=== PATIENT | female | born 1970 | race Caucasian/White ===

== ENCOUNTER → 2017-04-08 | Outpatient (CLI) | payer OTHER ==
--- NOTE | 2017-04-08 11:45 | RADIOLOGY REPORT (SQ) ---
EXAM DESCRIPTION: CT ABD/PELVIS WITH IV ONLY COMPLETED DATE/TIME: 04/08/2017 11:17 am REASON FOR STUDY: CALCULUS OF KIDNEY N20.0 CALCULUS OF KIDNEY R10.9 UNSPECIFIED ABDOMINAL PAIN COMPARISON: None. TECHNIQUE: CT scan of the abdomen and pelvis performed using helical scanning technique with dynamic intravenous contrast injection. No oral contrast. Images reviewed with lung, soft tissue, and bone windows. Reconstructed coronal and sagittal MPR images reviewed. Delayed images for evaluation of the urinary system also acquired. All images stored on PACS. All CT scanners at this facility use dose modulation, iterative reconstruction, and/or weight based d osing when appropriate to reduce radiation dose to as low as reasonably achievable (ALARA). [facility]: Dose Right [facility]: CareDose [facility]: Dose Right [facility]: Teradose 4D [facility]: PixSense CONTRAST TYPE AND DOSE: contrast/concentration: Isovue 370.00 mg/ml; Total Contrast Delivered: 79.0 ml; Total Saline Delivered: 68.0 ml RENAL FUNCTION: Creatinine 0.5 RADIATION DOSE: Up-to-date CT equipment and radiation dose reduction techniques were employed. CTDIv ol: 6.1 - 7.2 mGy. DLP: 667 mGy-cm.. LIMITATIONS: None. FINDINGS: LOWER CHEST: No significant findings. No nodules or infiltrates. LIVER: There is a 10 mm low-density lesion right lobe of the liver on image 13. The shows peripheral enhancement. SPLEEN: Normal size. No focal lesions. PANCREAS: No masses. No significant calcifications. No adjacent inflammation or peripancreatic fluid collections. Pancreatic duct not dilated. GALLBLADDER: No identified stones by CT criteria. No inflammatory changes to suggest cholecystitis. ADRENAL GLANDS: No significant masses or asymmetry. RIGHT KIDNEY AND URETER: No solid masses. No significant calcifications. No hydronephrosis or hyd roureter. LEFT KIDNEY AND URETER: No solid masses. No significant calcifications. No hydronephrosis or hydr oureter. AORTA AND VESSELS: No aneurysm. No dissection. Renal arteries, SMA, celiac without stenosis. RETROPERITONEUM: No retroperitoneal adenopathy, hemorrhage or masses. BOWEL AND PERITONEAL CAVITY: No masses or inflammatory changes. No free fluid or peritoneal masses. APPENDIX: Not identified. PELVIS: The urinary bladder is normal. The uterus is absent. There is no adnexal mass or fluid aamir ection. ABDOMINAL WALL: No masses. No hernias. BONES: No significant or acute findings. OTHER: No other significant finding. IMPRESSION: 1. No urinary pathology is seen. 2. There is a small low-density peripherally enhancing lesion in the right lobe of the liver suggest ines of a hemangioma. TECHNICAL DOCUMENTATION: JOB ID: [id number] Quality ID # [id number]: Final reports with documentation of one or more dose reduction techniques (e.g., Au tomated exposure control, adjustment of the mA and/or kV according to patient size, use of iterative reconstruction technique) 2010 [employer]- All Rights Reserved
== END ==
LOC: RAD 10:16
PROVIDERS: ATTEND Nurse Practitioner Family
DX: N20.0 Calculus of kidney (principal); R10.9 Unspecified abdominal pain
CPT/HCPCS: 74177; 82565

== ENCOUNTER 2018-02-19 12:31 | Observation (INO) | payer BC, OTHER ==
[~2018-02-19 12:31] MED LIST: GLYCOPYRROLATE INJ 0.4 MG/2 ML VIAL ONE; NEOSTIGMINE METHYLSULFATE 10 MG/10 ML VIAL ONE; ROCURONIUM BROMIDE INJ 50 MG/5 ML VIAL IV ONE; SUCCINYLCHOLINE CHLORIDE INJ 200 MG/10 ML VIAL ONE
--- NOTE | 2018-02-19 13:12 | ER Document Report ---
ED Medical Screen (RME) - General Chief Complaint: Abdominal Pain Stated Complaint: LOWER ABDOMINAL PAIN Time Seen by Provider: 02/19/18 13:03 Notes: RAPID MEDICAL EVALUATION DISCLOSURE I have seen this patient as part of a Rapid Medical Evaluation and, if applicable, placed any initially appropriate orders. The patient will be seen and fully evaluated, including a full history and physical exam, by a provider ( in Main ED or Fast Track) when a room becomes available. 47-year-old female here with complaints of right lower quadrant abdominal pain ( worse with moving her right leg/hip) nausea vomiting that started yesterday. She has not had any dysuria hematuria frequency hesitancy and states he does not feel the same as her previous kidney stone pains. She has not had any diarrhea fevers chills. She is concerned she might have appendicitis. Her pain did worsen on the car ride here whenever her drove over bumps in the road. EXAM Minimally tachycardic Exquisite right lower quadrant TTP Mild suprapubic and right upper quadrant TTP TRAVEL OUTSIDE OF THE [place] IN LAST 30 DAYS: No - Related Data Allergies/Adverse Reactions: Penicillins Allergy (Severe, Verified 02/19/18 12:32) Hives Sulfa (Sulfonamide Antibiotics) Allergy (Intermediate, Verified 02/19/18 12:32) Nausea Past Medical History - Past Medical History Cardiac Medical History: Denies: Hx Coronary Artery Disease, Hx Heart Attack, Hx Hypertension Pulmonary Medical History: Reports: Hx Pneumonia Denies: Hx Asthma, Hx Bronchitis, Hx COPD Neurological Medical History: Denies: Hx Cerebrovascular Accident, Hx Seizures Musculoskeltal Medical History: Denies Hx Arthritis Past Surgical History: Denies: Hx Pacemaker - Immunizations Hx Diphtheria, Pertussis, Tetanus Vaccination: Yes Physical Exam - Vital signs Vitals: Temp Pulse Resp BP Pulse Ox 98.5 F 108 H 16 122/71 97 02/19/18 12:36 02/19/18 12:36 02/19/18 12:36 02/19/18 12:36 02/19/18 12:36 Course - Vital Signs Vital signs: Temp Pulse Resp BP Pulse Ox 98.5 F 108 H 16 122/71 97 02/19/18 12:36 02/19/18 12:36 02/19/18 12:36 02/19/18 12:36 02/19/18 12:36
[2018-02-19] MEDS ORDERED: ONDANSETRON HCL INJ/PF 4 MG/2 ML SDV IV ONE (13:13)
[2018-02-19] MEDS ORDERED: FENTANYL CITRATE INJ/PF 100 MCG/2 ML AMPUL IV ONE (13:13)
[2018-02-19 14:01] LABS: ABSOLUTE LYMPHOCYTES (AUTO) 1.8 10^3/uL (0.5-4.7); ABSOLUTE MONOCYTES (AUTO) 0.7 10^3/uL (0.1-1.4); ABSOLUTE NEUT (AUTO) 12.9 10^3/uL (1.7-8.2); BASOPHILS % (AUTO) 0.3 % (0-2); EOSINOPHILS % (AUTO) 0.2 % (0-6); HEMATOCRIT 39.7 % (36.0-47.0); HEMOGLOBIN 13.5 g/dL (12.0-15.5); LYMPHOCYTES % (AUTO) 11.6 % (13-45); MEAN CORPUSCULAR HEMOGLOBIN 30.3 pg (27.0-33.4); MEAN CORPUSCULAR HGB CONC 33.9 g/dL (32.0-36.0); MEAN CORPUSCULAR VOLUME 89 fl (80-97); MONOCYTES % (AUTO) 4.5 % (3-13); PLATELET COUNT 317 10^3/uL (150-450); RED BLOOD COUNT 4.45 10^6/uL (3.72-5.28); RED CELL DISTRIBUTION WIDTH 13.4 % (11.5-14.0); SEGMENTED NEUTROPHILS % (AUTO) 83.4 % (42-78); TOTAL CELLS COUNTED % (AUTO) 100 %; WHITE BLOOD COUNT 15.5 10^3/uL (4.0-10.5)
[2018-02-19 14:18] LABS: ALANINE AMINOTRANSFERASE 30 U/L (9-52); ALBUMIN 4.9 g/dL (3.5-5.0); ALKALINE PHOSPHATASE 73 U/L (38-126); ANION GAP 12 (5-19); ASPARTATE AMINO TRANSFERASE 19 U/L (14-36); BILIRUBIN,DIRECT 0.3 mg/dL (0.0-0.4); BILIRUBIN,TOTAL 0.5 mg/dL (0.2-1.3); BLOOD UREA NITROGEN 16 mg/dL (7-20); CALCIUM 10.5 mg/dL (8.4-10.2); CARBON DIOXIDE 28 mmol/L (22-30); CHLORIDE 101 mmol/L (98-107); GLUCOSE 107 mg/dL (75-110); LIPASE 75.8 U/L (23-300); POTASSIUM 4.3 mmol/L (3.6-5.0); SODIUM 141.3 mmol/L (137-145)
--- NOTE | 2018-02-19 14:31 | ER Document Report ---
ED GI/ - General Chief Complaint: Abdominal Pain Stated Complaint: LOWER ABDOMINAL PAIN Time Seen by Provider: 02/19/18 13:03 Mode of Arrival: Ambulatory Information source: Patient TRAVEL OUTSIDE OF THE [place] IN LAST 30 DAYS: No - HPI Patient complains to provider of: Abdominal pain Onset: Yesterday - EVENING Timing/Duration: Gradual Quality of pain: Dull, Sharp - W/ MOVEMENT Severity at maximum: Moderate Severity in ED: Mild Context: denies: Bad food, Lifting, Out of the country travel, , Recent trauma Location: RLQ Vaginal bleeding (Compared to normal period): None Menstrual period history: Post-menopausal Exacerbated by: Movement, Walking, Coughing, Deep breathing Relieved by: Remaining still Similar symptoms previously: No Recently seen / treated by doctor: No - Related Data Allergies/Adverse Reactions: Penicillins Allergy (Severe, Verified 02/19/18 12:32) Hives Sulfa (Sulfonamide Antibiotics) Allergy (Intermediate, Verified 02/19/18 12:32) Nausea Past Medical History - General Information source: Patient - Social History Smoking Status: Never Smoker Cigarette use (# per day): No Chew tobacco use (# tins/day): No Frequency of alcohol use: Rare Drug Abuse: None Lives with: Spouse/Significant other Family History: Reviewed & Not Pertinent Patient has suicidal ideation: No Patient has homicidal ideation: No - Past Medical History Cardiac Medical History: Reports: Hx Hypertension Denies: Hx Coronary Artery Disease, Hx Heart Attack Pulmonary Medical History: Reports: Hx Pneumonia Denies: Hx Asthma, Hx Bronchitis, Hx COPD Neurological Medical History: Denies: Hx Cerebrovascular Accident, Hx Seizures Renal/ Medical History: Denies: Hx Peritoneal Dialysis Musculoskeltal Medical History: Denies Hx Arthritis Psychiatric Medical History: Reports: Hx Depression Past Surgical History: Reports: Hx Hysterectomy, Hx Neurologic Surgery - Brain tumor, Hx Oral Surgery - wisdom teeth, Hx Tonsillectomy. Denies: Hx Pacemaker - Immunizations Hx Diphtheria, Pertussis, Tetanus Vaccination: Yes Review of Systems - Review of Systems Constitutional: No symptoms reported. denies: Chills, Fever EENT: No symptoms reported Cardiovascular: No symptoms reported Respiratory: No symptoms reported Gastrointestinal: See HPI, Poor appetite Genitourinary: No symptoms reported Female Genitourinary: No symptoms reported Musculoskeletal: No symptoms reported Skin: No symptoms reported Neurological/Psychological: No symptoms reported Physical Exam - Vital signs Vitals: Temp Pulse Resp BP Pulse Ox 98.5 F 108 H 16 122/71 97 02/19/18 12:36 02/19/18 12:36 02/19/18 12:36 02/19/18 12:36 02/19/18 12:36 Interpretation: Tachycardic. No: Tachypneic, Febrile - General General appearance: Appears well, Alert In distress: None - HEENT Head: Normocephalic Eyes: Normal Conjunctiva: Normal Ears: Normal Nasal: Normal Mouth/Lips: Normal Mucous membranes: Dry - Respiratory Respiratory status: No respiratory distress - Cardiovascular Rhythm: Regular, Tachycardia - Abdominal Inspection: Normal Distension: No distension Bowel sounds: Hypoactive Tenderness: Tender - RLQ - Extremities General upper extremity: Normal inspection General lower extremity: Normal inspection - Neurological Neuro grossly intact: Yes Cognition: Normal Orientation: AAOx4 - Psychological Associated symptoms: Normal affect, Normal mood - Skin Skin Temperature: Warm Skin Moisture: Dry Skin Color: Normal Skin Turgor: Elastic Course - Vital Signs Vital signs: Temp Pulse Resp BP Pulse Ox 98.5 F 108 H 16 122/71 97 02/19/18 12:36 02/19/18 12:36 02/19/18 12:36 02/19/18 12:36 02/19/18 12:36 - Laboratory Result Diagrams: 02/19/18 13:40 02/19/18 13:40 Laboratory results interpreted by me: 02/19/18 02/19/18 13:40 13:40 WBC 15.5 H Seg Neutrophils % 83.4 H Lymphocytes % 11.6 L Absolute Neutrophils 12.9 H Calcium 10.5 H - Consults DR. LEYVA Time consulted: 15:20 Consulted provider: will come to ER Discharge - Discharge Clinical Impression: Appendicitis Qualifiers: Appendicitis type: acute appendicitis Acute appendicitis type: unspecified acute appendicitis type Qualified Code(s): K35.80 - Unspecified acute appendicitis Condition: Good Disposition: ADMITTED INPATIENT Admitting Provider: Surgicalist Unit Admitted: Surgical Floor Referrals: HEYDI PFEIFFER MD [Primary Care Provider] - Follow up as needed
[2018-02-19] MEDS ORDERED: NORMAL SALINE 1000 ML 2,000 ML IV PRN (15:22)
[2018-02-19] MEDS ORDERED: METRONIDAZOLE RTU 500 MG/NS 100 ML IV ONE (15:27)
--- NOTE | 2018-02-19 15:31 | RADIOLOGY REPORT (SQ) ---
EXAM DESCRIPTION: CT ABD/PELVIS WITH IV ONLY COMPLETED DATE/TIME: 02/19/2018 3:03 pm REASON FOR STUDY: RLQ TTP; eval stone vs appendicitis COMPARISON: None. TECHNIQUE: CT scan of the abdomen and pelvis performed using helical scanning technique with dynamic intravenous contrast injection. No oral contrast. Images reviewed with lung, soft tissue, and bone windows. Reconstructed coronal and sagittal MPR images reviewed. Delayed images for evaluation of the urinary system also acquired. All images stored on PACS. All CT scanners at this facility use dose modulation, iterative reconstruction, and/or weight based d osing when appropriate to reduce radiation dose to as low as reasonably achievable (ALARA). [facility]: Dose Right [facility]: CareDose [facility]: Dose Right [facility]: Teradose 4D [facility]: [employer] CONTRAST TYPE AND DOSE: Isovue 370. 77.5 mL RENAL FUNCTION: NA. RADIATION DOSE: 982.8 LIMITATIONS: None. FINDINGS: LOWER CHEST: No abnormality seen. LIVER: There is evidence of a 1.4 x 1.7 cm septated cystic mass in the right lobe of the liver consis tent with hepatic cyst. SPLEEN: No abnormality. PANCREAS: No masses. No significant calcifications. No adjacent inflammation or peripancreatic fluid collections. Pancreatic duct not dilated. GALLBLADDER: No identified stones by CT criteria. No inflammatory changes to suggest cholecystitis. ADRENAL GLANDS: No abnormality seen. RIGHT KIDNEY AND URETER: No abnormality seen. LEFT KIDNEY AND URETER: No abnormality seen. AORTA AND VESSELS: No abnormality seen. Patency of the celiac, superior mesenteric and inferior mese nteric arteries. RETROPERITONEUM: No retroperitoneal adenopathy, hemorrhage or masses. BOWEL: Evidence of a thick-walled appendix measuring 1.1 cm with periappendiceal inflammation consis tent with changes of acute appendicitis. (image number [id number] series 3). Umbilical hernia contai juliet fat. Normal. PELVIS: Urinary bladder: No abnormality. Uterus: Absent. ABDOMINAL WALL: No masses. No hernias. BONES: Lumbar spondylosis. IMPRESSION: Findings consistent with acute appendicitis with periappendiceal inflammation. COMMENT: The ER physician was contacted and given the report approximately 1515 hours. TECHNICAL DOCUMENTATION: JOB ID: [id number]-69 Quality ID # [id number]: Final reports with documentation of one or more dose reduction techniques (e.g., Au tomated exposure control, adjustment of the mA and/or kV according to patient size, use of iterative reconstruction technique) 2010 [employer]- All Rights Reserved Reading location - IP/workstation name: [email or web address]
[2018-02-19] MEDS ORDERED: CIPROFLOXACIN 400 MG/D5W RTU 400 MG/200 ML RTUPB IV ONE (16:00)
--- NOTE | 2018-02-19 16:28 | PDOC H&P ---
History of Present Illness Admission Date/PCP: 02/19/18 15:55 HEYDI PFEIFFER MD Patient complains of: Right lower quadrant abdominal pain History of Present Illness: LOI HUMPHRIES is a 47 year old female with a 1 day history of periumbilical abdominal pain that moved to the right lower quadrant. The pain is sharp and stabbing. It is worsening as time goes on. Patient reports pain with lifting of her right leg. The patient denies fevers, chills, chest pain, shortness of breath, melena, hematochezia, or hematemesis. Nothing makes the pain better. Movement makes the pain worse. Past Medical History Cardiac Medical History: Reports: Hypertension Denies: Coronary Artery Disease, Myocardial Infarction Pulmonary Medical History: Reports: Pneumonia Denies: Asthma, Bronchitis, Chronic Obstructive Pulmonary Disease (COPD) Neurological Medical History: Denies: Seizures Musculoskeltal Medical History: Denies: Arthritis Psychiatric Medical History: Reports: Depression Hematology: Denies: Anemia Past Surgical History Past Surgical History: Reports: Hysterectomy, Tonsillectomy Denies: Pacemaker Social History Lives with: Spouse/Significant other Smoking Status: Never Smoker Frequency of Alcohol Use: Occasional Family History Family History: Reviewed & Not Pertinent Parental Family History Reviewed: Yes Children Family History Reviewed: Yes Sibling(s) Family History Reviewed.: Yes Medication/Allergy Home Medications: Ascorbic Acid [Vitamin C] 1,000 mg PO DAILY 08/14/12 Biotin [Biotin 300 mcg Tablet] 300 mcg PO DAILY 08/14/12 Diphenhydramine HCl [Unisom Sleepmelts] 25 mg PO QHS 08/14/12 Dm/P-Ephed/Acetaminoph/Doxylam [Nyquil D Cold & Flu Liquid] 295 ml PO PRN Fluoxetine HCl [Prozac 20 Mg Capsule] 20 mg PO QHS 08/14/12 Gluc Hansen/Chondro Hansen A/Vit C/Mn [Glucosamine Chondroitin Tab] 1 each PO DAILY 02/18 Ibuprofen [Motrin 400 Mg Tablet] 400 mg PO PRN 08/14/12 Multivitamin [Tab-A-Tito (Multiple Vitamin) Tablet] 1 tab PO DAILY 08/14/12 P-Ephed HCl/Acetaminophn/Cp [Tylenol Allergy Sinus Caplet] 2 each PO PRN Vitamin B Complex [Super B Complex] 1 each PO DAILY 08/14/12 Cephalexin Monohydrate [Keflex 500 mg Capsule] 500 mg PO Q8H 08/16/12 Oxycodone HCl/Acetaminophen [Percocet 10-325 Mg Tablet] 1 each PO Q4HP PRN 08/16 Allergies/Adverse Reactions: Penicillins Allergy (Severe, Verified 02/19/18 12:32) Hives Sulfa (Sulfonamide Antibiotics) Allergy (Intermediate, Verified 02/19/18 12:32) Nausea Review of Systems Constitutional: PRESENT: anorexia. ABSENT: chills, fatigue, fever(s), weakness Eyes: ABSENT: visual disturbances Ears: ABSENT: hearing changes Nose, Mouth, and Throat: ABSENT: sore throat Cardiovascular: ABSENT: chest pain, dyspnea on exertion, palpitations Respiratory: ABSENT: cough, dyspnea Gastrointestinal: PRESENT: abdominal pain - Right lower quadrant, bloating. ABSENT: hematemesis, hematochezia, melena, nausea, vomiting Musculoskeletal: ABSENT: deformity, joint swelling Integumentary: ABSENT: erythema, pruritus, rash Neurological: ABSENT: abnormal movements, confusion, dizziness, lack of coordination, memory loss, paresthesias Psychiatric: ABSENT: anxiety, hallucinations Endocrine: ABSENT: cold intolerance, heat intolerance Hematologic/Lymphatic: ABSENT: easy bleeding, easy bruising, lymphadenopathy Physical Exam Vital Signs: Temp Pulse Resp BP Pulse Ox 98.5 F 108 H 16 122/71 97 02/19/18 12:36 02/19/18 12:36 02/19/18 12:36 02/19/18 12:36 02/19/18 12:36 General appearance: PRESENT: mild distress - Abdominal discomfort Head exam: PRESENT: atraumatic, normocephalic Eye exam: PRESENT: EOMI, PERRLA. ABSENT: conjunctival injection, scleral icterus Mouth exam: PRESENT: moist, neck supple Teeth exam: ABSENT: poor dentation Neck exam: ABSENT: lymphadenopathy, meningismus, tenderness, thyromegaly, tracheal deviation Respiratory exam: PRESENT: clear to auscultation [place]. ABSENT: chest wall tenderness, rales, rhonchi, tachypnea, wheezes Cardiovascular exam: PRESENT: RRR Pulses: PRESENT: normal radial pulses Vascular exam: PRESENT: normal capillary refill. ABSENT: pallor GI/Abdominal exam: PRESENT: guarding - Voluntary, hypoactive bowel sounds, soft , tenderness - Right lower quadrant at Burney's point Rectal exam: PRESENT: deferred Extremities exam: ABSENT: tenderness Musculoskeletal exam: PRESENT: normal inspection. ABSENT: tenderness Neurological exam: PRESENT: alert, awake, oriented to person, oriented to place , oriented to time, oriented to situation, CN II-XII grossly intact. ABSENT: motor sensory deficit Psychiatric exam: ABSENT: anxious Skin exam: ABSENT: cyanosis, erythema, jaundice, pallor, rash Results Impressions: Abdomen/Pelvis CT 02/19/18 13:10 IMPRESSION: Findings consistent with acute appendicitis with periappendiceal inflammation. Assessment & Plan - Inpatient Certification Medical Necessity: Need for Surgery - Plan Summary Plan Summary: This is a 47-year-old female with right lower quadrant pain for the last 24 hours. Pain is worsening. She presented to the emergency department where she was found to have an elevated white blood cell count as well as appendiceal thickening on CT scan. Reviewed her results and CT images personally. She does have a thickened appendix extending down into the pelvis. I recommended surgical removal of her appendix, and she has agreed. Risks/benefits discussed , informed consent obtained, and all questions answered.
[2018-02-19] MEDS ORDERED: BUPIVACAINE HCL 0.25 % INJ/PF (2.5 MG/1 ML) 30 ML VIAL ONE (16:30)
[2018-02-19] MEDS ORDERED: FENTANYL CITRATE INJ/PF 250 MCG/5 ML AMPULE ONE (16:35)
[2018-02-19] MEDS ORDERED: DEXAMETHASONE SOD PHOSPHATE INJ 4 MG/1 ML VIAL ONE (16:35)
[2018-02-19] MEDS ORDERED: ONDANSETRON HCL INJ/PF 4 MG/2 ML SDV ONE (16:35)
[2018-02-19] MEDS ORDERED: MIDAZOLAM 2 MG/2 ML INJ ONE (16:35)
[2018-02-19] MEDS ORDERED: MORPHINE SULFATE 10 MG/ML INJ ONE ×2 (16:36→18:46)
[2018-02-19] MEDS ORDERED: PROPOFOL INJ 200 MG/20 ML VIAL IV ONE (16:36)
[2018-02-19] MEDS ORDERED: ACETAMINOPHEN 100 ML IV ONE (16:36)
[2018-02-19 16:46] LABS: APPEARANCE,URINE CLEAR; BILIRUBIN,URINE NEGATIVE (NEGATIVE); COLOR,URINE STRAW; GLUCOSE, URINE NEGATIVE (NEGATIVE); KETONES,URINE TRACE mg/dL (NEGATIVE); LEUKOCYTE ESTERASE,URINE NEGATIVE (NEGATIVE); NITRITE,URINE NEGATIVE (NEGATIVE); PROTEIN,URINE NEGATIVE (NEGATIVE); URINE SPECIFIC GRAVITY 1.048; UROBILINOGEN,URINE NEGATIVE mg/dL (<2.0)
[2018-02-19] MEDS ORDERED: PROMETHAZINE HCL INJ 25 MG/1 ML VIAL ONE (19:13)
[2018-02-19] MEDS ORDERED: KETOROLAC TROMETHAMINE INJ/PF 30 MG/1 ML SDV ONE (19:13)
[2018-02-19] MEDS ORDERED: ONDANSETRON HCL INJ/PF 4 MG/2 ML SDV IV PRN (20:05)
[2018-02-19] MEDS ORDERED: HYDROCODONE/ACETAMINOPHEN 10-325 MG TABLET PO PRN (20:05)
[2018-02-19] MEDS ORDERED: MORPHINE SULFATE 10 MG/ML INJ IV PRN (20:05)
[2018-02-19] MEDS: METRONIDAZOLE 500 MG/NS RTU 100 ML IV SCH ×2 (21:00→21:01)
[2018-02-19] MEDS: CIPROFLOXACIN 400 MG/D5W RTU 400 MG/200 ML RTUPB IV SCH (21:24)
[2018-02-19] MEDS ORDERED: FLUOXETINE HCL 20 MG CAPSULE PO SCH (22:00)
[2018-02-19] MEDS ORDERED: DIPHENHYDRAMINE HCL 25 MG CAPSULE PO SCH (22:00)
--- NOTE | 2018-02-20 00:35 | Operative Report ---
Nonrecallable Operative Report DATE OF SURGERY: 02/20/18 PREOPERATIVE DIAGNOSIS: acute appendicitis POSTOPERATIVE DIAGNOSIS: acute nonperforated appendicitis OPERATION: Laparoscopic appendectomy SURGEON: ARIANNA LEYVA ANESTHESIA: GA TISSUE REMOVED OR ALTERED: appendix COMPLICATIONS: none apparent ESTIMATED BLOOD LOSS: minimal PROCEDURE: Drains: none After informed consent was obtained, the pt was brought into the operating room and laid in the supine position. The area of the abdomen was prepped and draped in a normal, sterile fashion. A 15 blade scalpel was used to create a supraumbilical incision. It was deepened through the use of sharp and blunt dissection. The cicatrix was identified and retracted upwards. The linea alba fascia was incised sharply. The abdomen was entered sharply. The balloon trocar was inserted and pneumoperitoneum was achieved. A suprapubic 5mm trocar was placed under direct laparoscopic visualization. Another left lower quadrant trocar was placed under direct laparoscopic vision. Atraumatic graspers were placed through the 5mm ports. The appendix was retracted anteriorly. The mesoappendix was taken down using the harmonic scalpel. The base of the appendix was encircled using PDS endoloops x2. The appendix was amputated using the harmonic scalpel. The appendix was placed into an endocatch bag and removed through the umbilical port. The camera was reinserted. The appendiceal stump appeared in good order. The 5mm trocars were removed under direct laparoscopic vision. The balloon trocar was removed and pneumoperitoneum was relieved. The supraumbilical fascia was closed using 0 Vicryl suture in figure of eight fashion. The overlying skin was closed using 4-0 Vicryl Rapide suture in subcuticular fashion. All sponge, instruments, and needle counts were correct x2. Cond: stable.
[2018-02-20 08:41] VITALS: BP 105/63
[2018-02-20] MEDS: CIPROFLOXACIN 400 MG/D5W RTU 400 MG/200 ML RTUPB IV SCH (09:39)
[2018-02-20] MEDS: METRONIDAZOLE 500 MG/NS RTU 100 ML IV SCH (09:39)
--- NOTE | 2018-02-21 00:19 | DISCHARGE SUMMARY E ---
Discharge Summary NAME: LOI HUMPHRIES : 1970 AGE: 47Y ADMITTED: 02/19/2018 DISCHARGED: 02/20/2018 REASON FOR ADMISSION: Acute appendicitis. SUMMARY OF HOSPITALIZATION: The patient is a 47-year-old white female presented to the emergency department complaining of abdominal pain. She was evaluated by CT scan of the abdomen and pelvis and found to have findings consistent with acute appendicitis. The patient was taken to the operating room by Dr. Champagne which she underwent interval laparoscopic appendectomy. She was found to have an acutely inflamed appendix. She tolerated the procedure well. There were no postprocedure complications. The following day she was moving well, tolerating a diet. She was discharged home to the care of her family. FINAL DIAGNOSIS: Acute appendicitis, status post laparoscopic appendectomy, Dr. Calderón/ Giorgio. DISPOSITION: The patient is discharged home to care of family. FOLLOW UP: Dr. Alvares or life assurance representative from [facility] in approximately 1-2 weeks. Resume preoperative medications diet and activity. She will take Tylenol p.r.n. pain. DICTATING PHYSICIAN: AMA SAN M.D. [id number] PHY#: [id number] ID: [id number] JOB#: [id number] ACCT: [id number] cc:Miryam HOGAN M.D. > MTDD
== END 2018-02-20 11:00 | disposition home or self-care (01) ==
LOC: ER 12:31 → EH 15:55 → INTOOBSV 15:55 → 4S 19:56
PROVIDERS: ATTEND Surgery
PROC: 0DTJ4ZZ Resection of Appendix, Percutaneous Endoscopic Approach (ICD-10-PCS; principal; 2018-02-19 17:30)
DX: K35.80 Unspecified acute appendicitis (principal); R00.0 Tachycardia, unspecified; Z90.710 Acquired absence of both cervix and uterus; Z78.0 Asymptomatic menopausal state; Z87.442 Personal history of urinary calculi
CPT/HCPCS: 99285; 96374; 96375; 36415; 87040; 83690; 85025; 80053; 81001; 88304 ×2; 74177; 44970; G0378 ×3; J2250; J3490; J1100; J3010 ×2; J1885; J2270; J2550; J0330; J2405; J7030; J2704; J0744; J0131; 840

== ENCOUNTER 2018-12-11 10:27 | Day surgery (SDC) | payer OTHER ==
[~2018-12-11 10:27] MED LIST changes: -GLYCOPYRROLATE INJ 0.4 MG/2 ML VIAL ONE; -NEOSTIGMINE METHYLSULFATE 10 MG/10 ML VIAL ONE; +PROPOFOL INJ 200 MG/20 ML VIAL IV ONE; -ROCURONIUM BROMIDE INJ 50 MG/5 ML VIAL IV ONE; -SUCCINYLCHOLINE CHLORIDE INJ 200 MG/10 ML VIAL ONE
[2018-12-11] MEDS ORDERED: PROPOFOL INJ 200 MG/20 ML VIAL IV ONE (12:22)
[2018-12-11 13:07] VITALS: BP 119/75
--- NOTE | 2018-12-11 14:35 | Operative Report ---
Operative Report DATE OF SURGERY: 12/11/18 Operative Report: The risks, benefits and alternatives of the procedure including the risk of bleeding, perforation requiring surgery have been explained to the patient in detail and informed consent has been obtained. Patient is brought back to the endoscopy suite and placed in a left, lateral decubital position. Timeout was called. Propofol medication is administered. Rectal examination is done which did not reveal any masses, tears or fissures. An Olympus videoscope was introduced into the patient's rectum. The scope was then carefully advanced all the way to the cecum. Cecum was identified by the usual anatomical landmarks including the ileocecal valve as well as the appendiceal office. Photodocumentation is obtained. The scope was then sequentially pulled back via the various segments of the colon including the ascending colon, hepatic flexure, transverse colon, splenic flexure, descending colon and finally into the rectosigmoid portions of the colon. Retroflexion maneuver was performed. The risks benefits and alternatives of the procedure explained to the patient in detail and informed consent is obtained.A GIF Olympus video scope was inserted into the patient's mouth and hypopharynx ,the esophagus is identified intubated and insufflated, the scope was then advanced through the esophagus stomach and duodenum, retroflexion maneuver is done, the esophagus stomach and first and second portions of the duodenum examined. PREOPERATIVE DIAGNOSIS: Rectal bleeding. Epigastric pain POSTOPERATIVE DIAGNOSIS: Possible esophageal rings and furrows suggestive of eosinophilic esophagitis status post biopsy. Hiatal hernia. Duodenitis. Gastritis status post biopsy. Right-sided colon Inflammation status post biopsy. Diverticulosis without any evidence of diverticulitis. Internal hemorrhoids OPERATION: Colonoscopy with biopsy. EGD with biopsy SURGEON: NATHAN CHAUDHRY ANESTHESIA: LMAC TISSUE REMOVED OR ALTERED: As noted above. COMPLICATIONS: None. ESTIMATED BLOOD LOSS: None. INTRAOPERATIVE FINDINGS: As noted above. PROCEDURE: Patient tolerated the procedure well. No immediate postprocedure complications are noted. Patient discharged in good condition. Discharge date 12/11/2018. Discharge diet: Regular. Discharge activity: Regular. 2-3-week follow-up to discuss findings. Patient is instructed to call the office or proceed to the emergency room should there be any further problems or questions. Wait on the pathology.
== END 2018-12-11 13:10 | disposition home or self-care (01) ==
LOC: END 10:27
PROVIDERS: ATTEND Internal Medicine Gastroenterology
DX: K44.9 Diaphragmatic hernia without obstruction or gangrene (principal); K29.80 Duodenitis without bleeding; K29.50 Unspecified chronic gastritis without bleeding; K52.9 Noninfective gastroenteritis and colitis, unspecified; K57.30 Diverticulosis of large intestine without perforation or abscess without bleeding; K64.8 Other hemorrhoids; K92.1 Melena; K21.9 Gastro-esophageal reflux disease without esophagitis; E78.01 Familial hypercholesterolemia; I11.9 Hypertensive heart disease without heart failure; Z79.899 Other long term (current) drug therapy; Z88.0 Allergy status to penicillin; Z88.2 Allergy status to sulfonamides
CPT/HCPCS: 43239; 45380; 88342 ×2; 88305 ×2; J2704